=== PATIENT | male | born 2005 | race Caucasian/White ===

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

== ENCOUNTER 2024-02-27 14:05 | Emergency (ER) | payer OTHER, SELFPAY ==
[2024-02-27 14:16] VITALS: BP 118/72; PULSE 70; RESP 16; TEMP 37.2; O2SAT 100
--- NOTE | 2024-02-27 14:21 | ED.WOUNDLAC ---
HPI - Wound/Laceration General Chief Complaint: Wound/Laceration Stated Complaint: Snake/Bug Bite Time Seen by Provider: 02/27/24 14:20 Source: patient Mode of arrival: ambulatory Limitations: no limitations History of Present Illness HPI narrative: Kevin is a 18-year-old male patient presenting to the clinic today with complaints of possible insect bite or sting bite to the left lower leg. He reports that he was mowing some tall grass yesterday and fell as though he got bit by something. Had instant pain and is now having itching and swelling around the bite jc. He is concerned that he may have been bit by a snake. Reports that the area swollen and somewhat painful but mostly itchy. He denies any fever, chills, or other body aches. Related Data Allergies Allergy/AdvReac Type Severity Reaction Status Date / Time No Known Allergies Allergy Verified 02/27/24 14:19 Review of Systems Review of Systems: Pertinent positives per HPI. Patient denies any fever, chills, headache, visual changes, dizziness, cough, runny nose, sore throat, shortness of breath, chest pain, palpitations, nausea, vomiting, diarrhea, constipation, abdominal pain, or any urinary issues. [facility] Surgical History Surgical History History of placement of ear tubes Social History Social History Smoking status: Never smoker Alcohol intake: never Substance use: never Living arrangements: with family Occupation/Education: student Comments At the time of my signature, I reviewed and agree with the nursing past medical, surgical, social, and family history. There is no relevant family history pertinent to the patient complaint. Exam Narrative: General: Well-developed, well nourished, in no apparent distress Head: Normocephalic, atraumatic. Cardio: Regular rate and rhythm, s1 and s2 normal, no murmur appreciated. Resp: Clear to auscultation bilaterally, no rhonchi, rales, wheezing or rubs. Integumentary: [place], warm, and dry, 2 small scabbed over puncture wound bites to the left lower lateral posterior calf, redness and swelling localized around the bite, mild erythema, itchy, no purulent discharge Course Course Emergency Course: Portions of this record may have been created with voice recognition software. Level of Care: Express Care Visit Vital Signs Vital signs: Vital Signs Temperature 37.2 C 02/27/24 14:16 Pulse Rate 70 02/27/24 14:16 Respiratory Rate 16 02/27/24 14:16 Blood Pressure 118/72 02/27/24 14:16 Pulse Oximetry 100 02/27/24 14:16 Oxygen Delivery Room Air 02/27/24 14:16 Temperature 37.2 C 02/27/24 14:16 Pulse Rate 70 02/27/24 14:16 Respiratory Rate 16 02/27/24 14:16 Blood Pressure 118/72 02/27/24 14:16 Pulse Oximetry 100 02/27/24 14:16 Oxygen Delivery Room Air 02/27/24 14:16 Vital signs reviewed MDM - Wound/Laceration MDM Narrative Medical decision making narrative: At the time of visit patient is resting comfortably on the exam table. Patient appears to be nontoxic. Plan: Cannot rule out snake bite verses insect bite however I feel as this is likely allergic reaction due to a bite. It has been over 24 hours since the patient had been bitten. No skin necrosis, subcutaneous emphysema, or purulent discharge noted. He is not having any life-threatening symptoms. Prescription for prednisone and clindamycin was sent to the pharmacy. Supportive measures were discussed with the patient and they voiced understanding discharge instructions and agrees to treatment plan. Return precautions reviewed Differential Diagnosis Differential diagnosis: Likely laceration, abscess, abrasion, avulsion of skin and other (General allergic reaction from insect bite, possible snake bite,) Discharge Plan Discharge Clinical Impression: Insect bite Qualifiers: [place]
== END 2024-02-27 14:33 | disposition home or self-care (01) ==
PROVIDERS: Emergency Provider Nurse Practitioner Family
DX: S80.862A Insect bite (nonvenomous), left lower leg, initial encounter (principal); W57.XXXA Bitten or stung by nonvenomous insect and other nonvenomous arthropods, initial encounter
CPT/HCPCS: 99213; G0463

== ENCOUNTER 2024-02-27 14:59 | Emergency (ER) | payer OTHER, SELFPAY ==
[2024-02-27 15:13] VITALS: BP 117/65; PULSE 88; RESP 18; TEMP 36.6; O2SAT 99
--- NOTE | 2024-02-27 15:15 | PC.NURSE ---
pt reports taking benadryl around 0900.
--- NOTE | 2024-02-27 15:59 | ED.GENADULT ---
HPI - General Adult General Chief complaint: Animal Bite Stated complaint: snake bite Time Seen by Provider: 02/27/24 15:19 History of Present Illness HPI narrative: Kevin Valles is a 18 y/o male who presents today with reports of mowing an overly grown grassy area yesterday at around 1200/ noon and he felt something bite the back of his left calf. He states it started to bleed right away and was painful but he did not see what bit him. Related Data Allergies Allergy/AdvReac Type Severity Reaction Status Date / Time No Known Allergies Allergy Verified 02/27/24 14:19 Review of Systems Review of Systems: All systems reviewed & are unremarkable except as noted in HPI and below PMFSH Surgical History Surgical History History of placement of ear tubes Social History Social History Smoking status: Never smoker Alcohol intake: never Substance use: never Living arrangements: with family Occupation/Education: student Exam Narrative: GENERAL: Well-appearing, well-nourished, and in no acute distress. HEAD: Normocephalic, atraumatic. EYES: PERRLA and EOMI. ENT: Nares clear, no rhinorrhea or epistaxis. Mucous membranes moist. Oropharynx without tonsillar hypertrophy exudate or other lesions. Bilateral TMs pearly teixeira nonbulging NECK: Supple. No adenopathy or masses. No carotid bruits or JVD CHEST: Clear to auscultation. No respiratory distress. No wheezes rales or rhonchi HEART: Regular rate and rhythm. No murmur heard. Normal peripheral pulses. ABDOMEN: Soft, nontender, nondistended, normal active bowel sounds. EXTREMITIES: Normal range of motion. + erythema to the back of his left calf SKIN: Warm, dry, no rash. NEURO: No focal deficits. Alert and oriented x3. PSYCH: Normal mood and affect. Course Vital Signs Vital signs: Vital Signs Temperature 36.6 C 02/27/24 15:13 Pulse Rate 88 02/27/24 15:13 Respiratory Rate 18 02/27/24 15:13 Blood Pressure 117/65 02/27/24 15:13 Pulse Oximetry 99 02/27/24 15:13 Oxygen Delivery Room Air 02/27/24 15:13 Temperature 36.6 C 02/27/24 15:13 Pulse Rate 88 02/27/24 15:13 Respiratory Rate 18 02/27/24 15:13 Blood Pressure 117/65 02/27/24 15:13 Pulse Oximetry 99 02/27/24 15:13 Oxygen Delivery Room Air 02/27/24 15:13 Medical Decision Making MDM Narrative Medical decision making narrative: 18 y/o male who presents after a 'bite' that happened yesterday at 1200. He strongly believes this was by a snake, he was mowing very over grown grass and he had to go over it 2-3 times. He states he has continued pain / swelling and redness to the area of his left calf There is also noted to be two round small 'punctures' that is painful and an abrasion and another singular puncture that is also painful Surrounding firmness and erythema / cellulitis noted with pt not sure what he was bit by but he is concerned for a snake bite, reviewed [facility] snake bite information and collaborated with Dr. Ronquillo who also assessed pt's leg. Checked lab work CBC - + Leukocytosis CMP- unremarkable PT/PTT - within normal Fibrinogen - Within normal With these labs being stable, I am less concerned for a venomous snake bite Considered rabies bite? and less likely to have a bat in the grass that he did not see afterward or see fly away and my collaborating physician agrees that rabies is not likely ' Patient re-assessed and area actually looks to be improving - pt agrees that the area on his leg is improving Updating Tdap since pt has no idea when he has had a TDAP and he cannot get ahold of his mother at this time Will give one dose of IV Ceftriaxone and d/c with Cephalexin four times a day for 1 week Close PCP follow up Strict return precautions provided Medical Records Medical records reviewed: Yes I reviewed the external patient's med
[2024-02-27 16:34] LABS: Basophils Percent Auto 0.2 % (0.2-1.2); Eosinophils Absolute Auto 0.2 K/mm3 (0-0.3); Eosinophils Percent Auto 1.4 % (0-4.4); Hematocrit 46.4 % (42.0-52.0); Hemoglobin 16.2 g/dL (14.0-18.0); Immature Granulocyte Percent A 0.6 % (0-0.5); Lymphocytes Percent Auto 10.6 % (18.3-44.2); Mean Corpuscular HGB Conc 34.9 g/dl (32-36); Mean Corpuscular Hemoglobin 30.3 pg (26-34); Mean Corpuscular Volume 86.9 fl (80-100); Mean Platelet Volume 9.8 fl (7.4-10.4); Monocytes Absolute Auto 1.4 K/mm3 (0.1-0.6); Monocytes Percent Auto 8.4 % (2.6-8.5); Neutrophils Absolute Auto 12.6 K/mm3 (1.3-6.7); Neutrophils Percent Auto 78.8 % (45.5-73.1); Platelet Count Result 259 k/mm3 (150-375); Red Blood Count 5.34 M/mm3 (4.6-6.20); Red Cell Distribution Width 13.2 % (11.5-14.5)
[2024-02-27 16:44] LABS: Prothrombin Time 13.4 Seconds (11.1-14.7)
[2024-02-27 16:45] LABS: Partial Thromboplastin Time 26.9 Seconds (22.3-36.8)
[2024-02-27 16:46] LABS: Fibrinogen 325 mg/dl (215-510)
[2024-02-27 16:48] LABS: Alanine Aminotransferase 26 U/L (6-50); Albumin Level 4.9 g/dL (3.7-5.6); Alkaline Phosphatase 69 U/L (58-237); Anion Gap 11 mmol/L (4-12); Aspartate Amino Transferase 27 U/L (17-59); Bilirubin,Total 0.4 mg/dL (0.2-1.3); Blood Urea Nitrogen 14 mg/dL (8-21); Calcium 9.6 mg/dL (8.9-10.7); Carbon Dioxide 26 mmol/L (22-30); Chloride 102 mmol/L (98-107); Estimated CRCL calculation 127 ml/min; Estimated Glomerular Filt Rate > 60; Glucose 98 mg/dL (65-110); Potassium 3.9 mmol/L (3.4-5.0); Sodium 139 mmol/L (134-143)
[2024-02-27 17:58] LABS: Erythrocyte Sedimentation Rate 1 mm/hr (0-20)
[2024-02-27] MEDS: TETANUS,DIPHTHERIA,AC PERTUSSIS ADULT (0.5 ML) BOOSTRIX IM (17:59)
== END 2024-02-27 18:55 | disposition home or self-care (01) ==
PROVIDERS: Emergency Provider Nurse Practitioner Family
DX: S81.852A Open bite, left lower leg, initial encounter (principal); Z23 Encounter for immunization; W59.11XA Bitten by nonvenomous snake, initial encounter
CPT/HCPCS: 36415; 80053; 85025; 85384; 85610; 85652; 85730; 90471; 90715; 96365; 99284; J0696

== ENCOUNTER 2025-01-17 12:20 | Emergency (ER) | payer OTHER, SELFPAY ==
[2025-01-17 12:30] VITALS: BP 101/83; PULSE 72; RESP 20; TEMP 36.9; O2SAT 97
--- NOTE | 2025-01-17 12:48 | ED_ITS ---
HPI - Skin/Abscess/Foreign Bdy General Chief complaint: Skin/Abscess/Foreign Body Stated complaint: Wound Check Time Seen by Provider: 01/17/25 12:48 Source: patient and family Mode of arrival: ambulatory Limitations: no limitations History of Present Illness HPI narrative: 19 yo M presents with rash to buttock for approx. 1 month. Used lotrimin for 2 wks with no change. Dad gave him triamcinolone and has helped with itching and drying out rash but not going away. Pt states first started as one itchy spot that he started scratching at and then spread. Afebrile. all systems reviewed and negative except as noted above. Related Data Allergies Allergy/AdvReac Type Severity Reaction Status Date / Time No Known Allergies Allergy Verified 01/17/25 12:23 Review of Systems Review of Systems: CONSTITUTIONAL: Denies fever, chills, or sweats. EYES: Denies visual changes, redness, or discharge. ENT: Denies rhinorrhea, congestion, sore throat, or otalgia. CARDIOVASCULAR: Denies chest pain, palpitations, or edema. RESPIRATORY: Denies cough or dyspnea. GASTROINTESTINAL: Denies abdominal pain, nausea, vomiting, or diarrhea. GENITOURINARY: Denies dysuria or hematuria. SKIN: itchy rash to buttock MUSCULOSKELETAL: Denies back pain, joint pain, or myalgia. NEUROLOGIC: Denies headache, numbness, or weakness. PSYCHIATRIC: Denies anxiety or depression. All other systems reviewed are negative, except as documented in HPI. PMFSH Surgical History Surgical History History of placement of ear tubes Social History Social History Smoking status: Never smoker Alcohol intake: never Substance use: never Living arrangements: with family Occupation/Education: student Comments At time of signature, agree with nursing past medical, surgical, social and family history. There is no relevant family history pertinent to the presenting complaint. Exam Narrative: GENERAL: This is a well-nourished, well-developed patient, in no apparent distress. HEAD: normocephalic, atraumatic. EYES: PERRL. Sclera clear/white. Vision is grossly intact. EARS: External ears normal NOSE: External nose normal NECK: Neck supple, non-tender without lymphadenopathy, masses or thyromegaly. CARDIOVASCULAR: Regular rate and rhythm without murmurs, gallops, or rubs. RESPIRATORY: Clear to auscultation. Breath sounds equal bilaterally. No wheezes, rales, or rhonchi. SKIN: warm, Dry, intact, good texture and turgor. erythematous scabbed or draining lesions covering bilateral buttock. drainage is yellow. no fluctuance concerning for abscess NEURO: awake, alert, and oriented to person, place and time. There were no obvious focal neurologic abnormalities. EXTREMITIES: No joint tenderness, effusion, or edema noted. Course Course Level of Care: Express Care Visit Vital Signs Vital signs: Vital Signs Temperature 36.9 C 01/17/25 12:30 Pulse Rate 72 01/17/25 12:30 Respiratory Rate 20 01/17/25 12:30 Blood Pressure 101/83 01/17/25 12:30 Pulse Oximetry 97 01/17/25 12:30 Oxygen Delivery Room Air 01/17/25 12:30 Temperature 36.9 C 01/17/25 12:30 Pulse Rate 72 01/17/25 12:30 Respiratory Rate 20 01/17/25 12:30 Blood Pressure 101/83 01/17/25 12:30 Pulse Oximetry 97 01/17/25 12:30 Oxygen Delivery Room Air 01/17/25 12:30 reviewed MDM - Skin/Abscess/Foreign Bdy MDM Narrative Medical decision making narrative: will treat with clindamycin and bactroban for staph infection. recommend follow up with PCP. Discussed good hygiene practices, avoid scratching. Discharge Plan Discharge Clinical Impression: Infection, skin, staph Patient Disposition: Home Condition: Stable Instructions: Antibiotic Form, MRSA (Methicillin-Resistant Staphylococcus Aureus) (ED) Additional Instructions: take antibiotic as prescribed until gone. Take antibiotic with full glass of water. Do not lay down for 30 minutes after taking antibiotic. Follow-up with primary care Provider if not improving. Patient Language: Estonian Prescriptions: New clindamycin HCl 300 mg capsule 300 mg PO QID 10 Days Qty: 40 0RF mupirocin [Centany] 2 % ointment 1 applic topical BID 10 Days Qty: 22 0RF Follow-up/Referrals: PHYSICIAN,ELECTRICAL ENGINEERING TECHNICIAN [Primary Care Provider] - David Hinds MD [Physician] - ( Establish care with primary care provider) Time of Disposition: 13:12
== END 2025-01-17 13:10 | disposition home or self-care (01) ==
PROVIDERS: Emergency Provider Nurse Practitioner Family
DX: L08.9 Local infection of the skin and subcutaneous tissue, unspecified (principal); B95.8 Unspecified staphylococcus as the cause of diseases classified elsewhere; Z96.22 Myringotomy tube(s) status
CPT/HCPCS: 99213; G0463